=== PATIENT | male | born 1950 | race Caucasian/White ===

== ENCOUNTER 2017-12-04 11:39 | Emergency (ER) | payer MEDICARE, OTHER ==
[2017-12-04] MEDS ORDERED: Sodium Chloride 0.9% 10 ML Syringe FLUSH PRN (13:38)
[2017-12-04] MEDS ORDERED: Iopamidol 755 Mg/ML 100 ML Bottle IVPUSH ONE (13:45)
[2017-12-04] MEDS ORDERED: Sodium Chloride 0.9% 1,000 ML IV ONE (14:12)
[2017-12-04 14:19] LABS: ANION GAP 11.6; CHLORIDE,CL 108 mmol/L (101-111); SODIUM,NA 137 mmol/L (135-145)
--- NOTE | 2017-12-04 14:23 | EDM.PDOC ---
ED HPI GENERAL MEDICAL PROBLEM - General Chief Complaint: Abdominal Pain Stated Complaint: [id number] HERNIA Time Seen by Provider: 12/04/17 13:30 Source of Information: Reports: Patient, Family, RN, RN Notes Reviewed History Limitations: Reports: No Limitations - History of Present Illness INITIAL COMMENTS - FREE TEXT/NARRATIVE: Pt to ER with c/o hernia. Patient states the hernia has been present for years but lately he feels his stomach is more distended and he is frequently nauseated. He states he feels the hernia move and "slide". He states his belly has progressively getting more distended and harder over the past 3 months. Patient states he has constipation at times, takes laxatives, and then has diarrhea. He states his stools are paste yellow in color. Denies blood in the stool. Denies any pain at this time. Patient states he has noticed that his skin has gotten quite pale. Patient also admits to decreased appetite in the past 3 months. Patient denies drinking alcohol, drug use, and states that he quit smoking 10 years ago. Patient states he has no known health problems and takes no meds. He states he does not go to the doctor. Onset: Gradual - Related Data Allergies Allergy/AdvReac Type Severity Reaction Status Date / Time No Known Allergies Allergy Verified 12/04/17 13:07 Home Meds: Home Meds . [No Known Home Meds] 12/04/17 [History] Past Medical History - Past Health History Medical/Surgical History: Denies Medical/Surgical History Gastrointestinal History: Reports: Other (See Below) Other Gastrointestinal History: umbilical area hernia Social & Family History - Tobacco Use Smoking Status *Q: Never Smoker Second Hand Smoke Exposure: No - Caffeine Use Caffeine Use: Reports: Coffee - Recreational Drug Use Recreational Drug Use: No ED ROS GENERAL - Review of Systems Review Of Systems: ROS reveals no pertinent complaints other than HPI. ED EXAM, GI/ABD - Physical Exam Exam: See Below Exam Limited By: No Limitations General Appearance: Alert, WD/WN, Mild Distress Eyes: Bilateral: Normal Appearance, EOMI Ears: Normal External Exam, Hearing Grossly Normal Nose: Normal Inspection Throat/Mouth: Normal Inspection, Normal Voice, No Airway Compromise Head: Atraumatic, Normocephalic Neck: Normal Inspection, Supple, Non-Tender, Full Range of Motion Respiratory/Chest: No Respiratory Distress, Lungs Clear, Normal Breath Sounds, No Accessory Muscle Use, Chest Non-Tender Cardiovascular: Normal Peripheral Pulses, Regular Rate, Rhythm, No Gallop, No JVD, Tachycardia, Other (pedal edema +1-2) GI/Abdominal Exam: Distended, Rigid, Tender, Abnormal Bowel Sounds, Hernia (Male) Exam: Deferred Rectal (Males) Exam: Deferred Back Exam: Normal Inspection, Full Range of Motion Extremities: Normal Inspection, Normal Range of Motion, Non-Tender, Normal Capillary Refill, Pedal Edema (+1-2) Neurological: Alert, Oriented, CN II-XII Intact, Normal Cognition, Normal Gait, Normal Reflexes, No Motor/Sensory Deficits Psychiatric: Anxious Skin Exam: Warm, Dry, Pallor Lymphatic: No Adenopathy Course - Vital Signs Last Recorded V/S: Last Vital Signs Temp 98.1 F 12/04/17 12:55 Pulse 126 H 12/04/17 12:55 Resp 18 12/04/17 12:55 BP 150/62 H 12/04/17 12:55 Pulse Ox 98 12/04/17 12:55 - Orders/Labs/Meds Orders: Active Orders 24 hr Category Date Time Status Peripheral IV Care [RC] . DIRECTED Care 12/04/17 13:39 Active DRUG SCREEN URINE BIORAD [URCHEM] Stat Lab 12/04/17 13:38 Ordered RED BLOOD CELLS LP [BBK] Stat Lab 12/04/17 13:47 Received TYPE AND SCREEN [BBK] Stat Lab 12/04/17 13:47 Received UA W/MICROSCOPIC [URIN] Stat Lab 12/04/17 13:38 Ordered Sodium Chloride 0.9% [Saline Flush] Med 12/04/17 13:38 Active 10 ml FLUSH ASDIRECTED PRN Peripheral IV Insertion Adult [OM.PC] Stat Oth 12/04/17 13:38 Ordered Transfuse RBC [Transfuse Red Blood Cells] [COMM] Stat Oth 12/04/17 14:01 Ordered Medication Orders Sodium Chloride (Saline Flush) 10 ml FLUSH ASDIRECTED PRN PRN Reason: Keep Vein Open Last Admin: 12/04/17 14:15 Dose: 10 ml Labs: Laboratory Tests 12/04/17 12/04/17 12/04/17 Range/Units 13:47 13:47 13:47 WBC 3.6 L (5.0-10.0) 10^3/uL RBC 2.77 L (4.6-6.2) 10^6/uL Hgb 4.6 L* (14.0-18.0) g/dL Hct 18.6 L* (40.0-54.0) % MCV 67.1 L (80-100) fL MCH 16.6 L (27.0-34.0) pg MCHC 24.7 L (33.0-35.0) g/dL Plt Count 106 L (150-450) 10^3/uL Neut % (Auto) 69.2 (42.2-75.2) % Lymph % (Auto) 19.4 L (20.5-50.1) % Whitley % (Auto) 8.3 H (2-8) % Eos % (Auto) 1.7 (1.0-3.0) % Baso % (Auto) 1.4 H (0.0-1.0) % PT 14.1 H (9.0-12.0) SEC INR 1.4 H (0.9-1.2) Sodium 137 (135-145) mmol/L Potassium 3.6 (3.6-5.0) mmol/L Chloride 108 (101-111) mmol/L Carbon Dioxide 21.0 (21.0-31.0) mmol/L Anion Gap 11.6 BUN 11 (7-18) mg/dL Creatinine 0.6 (0.6-1.3) mg/dL Est Cr Clr Drug Dosing 117.17 mL/min Estimated GFR (MDRD) > 60 BUN/Creatinine Ratio 18.33 Glucose 117 H (74-105) mg/dL Calcium 8.5 (8.4-10.2) mg/dl Total Bilirubin 2.0 H (0.2-1.0) mg/dL AST 32 (10-42) IU/L ALT 15 (10-60) IU/L Alkaline Phosphatase 56 (42-121) IU/L Total Protein 5.8 L (6.7-8.2) g/dl Albumin 3.1 L (3.2-5.5) g/dl Globulin 2.7 Albumin/Globulin Ratio 1.15 Amylase 32 (28-100) U/L Lipase 24 (22-51) U/L Ethyl Alcohol < 5 mg/dL Meds: Medications Generic Name Dose Route Start Last Admin Trade Name Denise PRN Reason Stop Dose Admin Sodium Chloride 10 ml 12/04/17 13:38 12/04/17 14:15 Saline Flush FLUSH 10 ml ASDIRECTED PRN Administration Keep Vein Open Discontinued Medications Generic Name Dose Route Start Last Admin Trade Name Denise PRN Reason Stop Dose Admin Sodium Chloride 1,000 mls @ 999 mls/hr 12/04/17 14:12 12/04/17 14:36 Normal Saline IV 12/04/17 15:12 999 mls/hr .BOLUS ONE Administration Iopamidol 100 ml 12/04/17 13:45 Isovue-370 (76%) IVPUSH 12/04/17 13:46 ONETIME ONE Iopamidol 100 ml 12/04/17 14:41 12/04/17 14:19 Isovue-300 (61%) IVPUSH 12/04/17 14:42 100 ml ONETIME ONE Administration - Radiology Interpretation Free Text/Narrative:: Chest/Abdomen/Pelvis CT: 1. Massive ascites filling the peritoneum and distending the abdomen. 2. Small cirrhotic appearing liver (irregular nodular surface) and splenomegaly. 3. Cholelithiasis without abnormal dilatation of the intra or extrahepatic biliary ducts. Normal pancreas. Kidneys unremarkable. 4. Infraumbilical ventral wall defect (hernia filled with ascitic fluid and tiny "knuckle" of small bowel) without current signs of mechanical bowel obstruction. 5. Normal cardiac silhouette without cephalization of vascular flow or alveolar edema. No pericardial effusion however small dependent (sympathetic?) pleural effusion, on the right. No lung mass, hilar lymphadenopathy or focal lobar pneumonia. 6. Disc disease and hypertrophic spondylosis but no pathologic skeletal lesion, fracture or dislocation of the spine. 7. Calcifications normal caliber thoracic and abdominal aorta. No aneurysm or dissection. Conclusion: Signs of severe liver failure. No obvious malignancy. Large umbilical hernia. See rad report Departure - Departure Time of Disposition: 15:23 Disposition: DC/Tfer to Acute Hospital 02 Condition: Poor, Serious, Critical Clinical Impression: Anemia Qualifiers: Anemia type: unspecified type Qualified Code(s): D64.9 - Anemia, unspecified Umbilical hernia Qualifiers: Obstruction and gangrene presence: without obstruction or gangrene Qualified Code(s): K42.9 - Umbilical hernia without obstruction or gangrene Liver failure Qualifiers: Liver failure chronicity: acute Hepatic coma status: without hepatic coma Qualified Code(s): K72.00 - Acute and subacute hepatic failure without coma - Discharge Information *PRESCRIPTION DRUG MONITORING PROGRAM REVIEWED*: No *COPY OF PRESCRIPTION DRUG MONITORING REPORT IN PATIENT WILLIS: No Forms: ED Department Discharge, Interfacility Transfer EMTALA - My Orders Last 24 Hours: My Active Orders 12/04/17 13:38 DRUG SCREEN URINE BIORAD [URCHEM] Stat UA W/MICROSCOPIC [URIN] Stat Sodium Chloride 0.9% [Saline Flush] 10 ml FLUSH ASDIRECTED PRN Peripheral IV Insertion Adult [OM.PC] Stat 12/04/17 13:39 Peripheral IV Care [RC] . DIRECTED 12/04/17 13:47 RED BLOOD CELLS LP [BBK] Stat TYPE AND SCREEN [BBK] Stat 12/04/17 14:01 Transfuse RBC [Transfuse Red Blood Cells] [COMM] Stat - Assessment/Plan Last 24 Hours: My Active Orders 12/04/17 13:38 DRUG SCREEN URINE BIORAD [URCHEM] Stat UA W/MICROSCOPIC [URIN] Stat Sodium Chloride 0.9% [Saline Flush] 10 ml FLUSH ASDIRECTED PRN Peripheral IV Insertion Adult [OM.PC] Stat 12/04/17 13:39 Peripheral IV Care [RC] . DIRECTED 12/04/17 13:47 RED BLOOD CELLS LP [BBK] Stat TYPE AND SCREEN [BBK] Stat 12/04/17 14:01 Transfuse RBC [Transfuse Red Blood Cells] [COMM] Stat
[2017-12-04] MEDS ORDERED: Iopamidol 612 MG/ML 100 ML Bottle IVPUSH ONE (14:41)
--- NOTE | 2017-12-04 14:52 | CT ---
Clinical history: 67-year-old enteric male with umbilical "hernia" and distended abdomen. Scan technique: Volume acquisition of data emergency CT scan chest abdomen and pelvis obtained after oral ingestion 1 bottle Redicat barium and during/after intravenous administration 100 cc nonionic Is ovue contrast (3 cc/s via injector) while patient was lying supine on the Siemens multi slice CT scan ner [place], [place]. All data archived in the PAC system for storage, reformatting axial/sagittal/coronal planes and study. Interpretation: Markedly abnormal. 1. Massive ascites filling the peritoneum and distending the abdomen. 2. Small cirrhotic appearing liver (irregular nodular surface) and splenomegaly. 3. Cholelithiasis without abnormal dilatation of the intra or extrahepatic biliary ducts. Normal panc reas. Kidneys unremarkable. 4. Infraumbilical ventral wall defect (hernia filled with ascitic fluid and tiny "knuckle" of small b owel) without current signs of mechanical bowel obstruction. 5. Normal cardiac silhouette without cephalization of vascular flow or alveolar edema. No pericardial effusion however small dependent (sympathetic?) pleural effusion, on the right. No lung mass, hilar lymphadenopathy or focal lobar pneumonia. 6. Disc disease and hypertrophic spondylosis but no pathologic skeletal lesion, fracture or dislocati on of the spine. 7. Calcifications normal caliber thoracic and abdominal aorta. No aneurysm or dissection. CONCLUSION: Signs of severe liver failure (see above). No obvious malignancy. Large umbilical hernia.
== END 2017-12-04 16:00 ==
LOC: EDBD 11:39 → DL.ED 11:39
DX: K72.00 Acute and subacute hepatic failure without coma (principal); K42.9 Umbilical hernia without obstruction or gangrene; D64.9 Anemia, unspecified
CPT/HCPCS: 36415; 36430; 71260; 74177; 80053; 80305; 81001; 82150; 83690; 85025; 85610; 86850; 86900; 86901; 86920; 86922; 96360; 99285; G0480; J7030; J7050; P9016; Q9967

== ENCOUNTER 2018-08-11 08:26 | Emergency (ER) | payer MEDICARE, OTHER ==
--- NOTE | 2018-08-11 08:56 | EDM.PDOC ---
ED HPI GENERAL MEDICAL PROBLEM - General Chief Complaint: General Stated Complaint: WOUND LEAKING FROM SURGERY PM FRIDAY Time Seen by Provider: 08/11/18 08:37 Source of Information: Reports: Patient, RN, RN Notes Reviewed, Other (MILLY Hanna , [facility]) History Limitations: Reports: No Limitations - History of Present Illness INITIAL COMMENTS - FREE TEXT/NARRATIVE: Pt to ER with c/o leakage from paracentesis site. Patient states he had a paracentesis on Friday at [facility] in [place]. Patient states the site has been profusely leaking since then. He states he has changed the dressing several times and his clothes are always wet. Denies fever or chills. Onset: Gradual - Related Data Allergies Allergy/AdvReac Type Severity Reaction Status Date / Time No Known Allergies Allergy Verified 08/11/18 08:36 Home Meds: Home Meds . [No Known Home Meds] 12/04/17 [History] Past Medical History - Past Health History Medical/Surgical History: Denies Medical/Surgical History HEENT History: Reports: None, Other (See Below) Other HEENT History: esphageal varices Cardiovascular History: Reports: None Respiratory History: Reports: None Gastrointestinal History: Reports: Other (See Below) Other Gastrointestinal History: umbilical area hernia Genitourinary History: Reports: None Musculoskeletal History: Reports: None Neurological History: Reports: None Psychiatric History: Reports: None Endocrine/Metabolic History: Reports: None Hematologic History: Reports: None Immunologic History: Reports: None Oncologic (Cancer) History: Reports: None Dermatologic History: Reports: None - Infectious Disease History Infectious Disease History: Reports: None - Past Surgical History Head Surgeries/Procedures: Reports: None Social & Family History - Family History Family Medical History: Noncontributory - Tobacco Use Smoking Status *Q: Former Smoker Used Tobacco, but Quit: Yes Month/Year Tobacco Last Used: ? - Caffeine Use Caffeine Use: Reports: Coffee - Recreational Drug Use Recreational Drug Use: No ED ROS GENERAL - Review of Systems Review Of Systems: ROS reveals no pertinent complaints other than HPI. ED EXAM, GENERAL - Physical Exam Exam: See Below Exam Limited By: No Limitations General Appearance: Alert, WD/WN, No Apparent Distress Eye Exam: Bilateral Eye: EOMI, Normal Inspection Ears: Normal External Exam, Hearing Grossly Normal Nose: Normal Inspection Throat/Mouth: Normal Inspection, Normal Voice, No Airway Compromise Head: Atraumatic, Normocephalic Neck: Normal Inspection, Supple, Non-Tender, Full Range of Motion Respiratory/Chest: No Respiratory Distress, Decreased Breath Sounds, Crackles ( bases bilaterally) Cardiovascular: Normal Peripheral Pulses, Regular Rate, Rhythm, No Edema, No Gallop, No JVD, No Murmur, No Rub Peripheral Pulses: 2+: Radial (L), Radial (R) GI/Abdominal: Normal Bowel Sounds, Non-Tender, Distended, Rigid, Hernia (large umbilical hernia), Other (paracentesis site on right side of abdomen leaking clear fluids) (Male) Exam: Deferred Rectal (Males) Exam: Deferred Back Exam: Normal Inspection, Full Range of Motion Extremities: Normal Inspection, Normal Range of Motion, Non-Tender, Normal Capillary Refill, No Pedal Edema Neurological: Alert, Oriented, CN II-XII Intact, Normal Cognition, Normal Gait, Normal Reflexes, No Motor/Sensory Deficits Psychiatric: Normal Affect, Normal Mood Skin Exam: Warm, Dry, Intact, Normal Color, No Rash Lymphatic: No Adenopathy ED GENERAL MEDICAL PROCEDURES - Laceration/Wound Repair Right Middle Abdomen Lac/wound length in cm: 0.5 Appearance: Subcutaneous Distal NVT: Neuro & Vascular Intact Local Anesthesia - Lidocaine (Xylocaine): 1% Plain Local Anesthetic Volume: 4cc Closed with: Sutures Suture Size: 4-0 # of Sutures: 1 Suture Type: Nylon, Other (Purse string suture ) Drain Placement: No Sterile Dressing Applied: Nurse Tetanus Status Addressed: No Complications: No Course - Vital Signs Last Recorded V/S: Last Vital Signs Temp 98.7 F 08/11/18 08:37 Pulse 112 H 08/11/18 08:37 Resp 18 08/11/18 08:37 BP 122/61 08/11/18 08:37 Pulse Ox 95 08/11/18 08:37 - Orders/Labs/Meds Meds: Medications Discontinued Medications Generic Name Dose Route Start Last Admin Trade Name Denise PRN Reason Stop Dose Admin Lidocaine HCl 30 ml 08/11/18 09:01 08/11/18 09:05 Xylocaine-Mpf 1% INJECT 08/11/18 09:02 30 ml ONETIME ONE Administration Departure - Departure Time of Disposition: 09:22 Disposition: Home, Self-Care 01 Condition: Fair Clinical Impression: Status post abdominal paracentesis - Discharge Information *PRESCRIPTION DRUG MONITORING PROGRAM REVIEWED*: No *COPY OF PRESCRIPTION DRUG MONITORING REPORT IN PATIENT WILLIS: No Referrals: Idalmis Reed MD [Primary Care Provider] - Forms: ED Department Discharge Additional Instructions: Keep area clean and dry Follow up with your primary care provider in 2-3 days to have the purse string suture removed Return to the ER with any further problems
[2018-08-11] MEDS ORDERED: Lidocaine 1% 30 ML SDV INJECT ONE (09:01)
== END 2018-08-11 09:27 | disposition home or self-care (01) ==
LOC: DL.ED 08:26
DX: K91.89 Other postprocedural complications and disorders of digestive system (principal); Z87.891 Personal history of nicotine dependence
CPT/HCPCS: 12001; 99283; J2001

== ENCOUNTER 2018-08-19 08:20 | Emergency (ER) | payer MEDICARE, OTHER ==
--- NOTE | 2018-08-19 09:00 | EDM.PDOC ---
<Aline Whitmore - Last Filed: 08/19/18 08:55> ED HPI GENERAL MEDICAL PROBLEM - General Chief Complaint: Wound Recheck Stated Complaint: SUTURE BROKE, LEAKING FLUID Time Seen by Provider: 08/19/18 08:20 Source of Information: Reports: Patient History Limitations: Reports: No Limitations - History of Present Illness INITIAL COMMENTS - FREE TEXT/NARRATIVE: Patient underwent a paracentesis to RUQ last week and sutures were removed x3 days ago. Patient states since then, he noticed that the site was "leaking", so much so to the point that the side of his shirt was saturated per his report. Patient reports that he does not experience this leaking while lying down, only with activity. Patient denies any N/V, fever, or chills. Patient has no pain to this area. Location: Reports: Abdomen (RUQ) Associated Symptoms: Reports: Other ("draining paracentesis site") - Related Data Allergies Allergy/AdvReac Type Severity Reaction Status Date / Time No Known Allergies Allergy Verified 08/19/18 08:28 Home Meds: Home Meds Pantoprazole Sodium 40 mg PO DAILY 08/19/18 [History] Past Medical History - Past Health History Medical/Surgical History: Denies Medical/Surgical History HEENT History: Reports: None, Other (See Below) Other HEENT History: esphageal varices Cardiovascular History: Reports: None Respiratory History: Reports: None Gastrointestinal History: Reports: Other (See Below) Other Gastrointestinal History: umbilical area hernia Genitourinary History: Reports: None Musculoskeletal History: Reports: None Neurological History: Reports: None Psychiatric History: Reports: None Endocrine/Metabolic History: Reports: None Hematologic History: Reports: None Immunologic History: Reports: None Oncologic (Cancer) History: Reports: None Dermatologic History: Reports: None - Infectious Disease History Infectious Disease History: Reports: None - Past Surgical History Head Surgeries/Procedures: Reports: None Social & Family History - Family History Family Medical History: Noncontributory - Caffeine Use Caffeine Use: Reports: Coffee ED ROS GENERAL - Review of Systems Review Of Systems: ROS reveals no pertinent complaints other than HPI. ED EXAM, SKIN/RASH Exam: See Below Exam Limited By: No Limitations General Appearance: Alert, WD/WN, No Apparent Distress Respiratory/Chest: No Respiratory Distress, Lungs Clear, Normal Breath Sounds, No Accessory Muscle Use, Chest Non-Tender Cardiovascular: Normal Peripheral Pulses, Regular Rate, Rhythm, No Edema, No Gallop, No JVD, No Murmur, No Rub GI/Abdominal: Normal Bowel Sounds, Soft, Non-Tender, No Abnormal Bruit, No Mass , Distended (paracentesis site to RUQ, no noted erythema or drainage) Neurological: Alert, Oriented, CN II-XII Intact, Normal Cognition, Normal Gait, Normal Reflexes, No Motor/Sensory Deficits Psychiatric: Normal Affect, Normal Mood Skin: Warm, Dry, Intact (paracentesis site to RUQ), Normal Color, No Rash Course - Re-Assessments/Exams Free Text/Narrative Re-Assessment/Exam: 4x4 gauze applied and secured to paracentesis site to try and capture drainage. Patient instructed to walk around room as per normal activity. 08/19/18 0835 After patient has been up ambulating within room, no drainage noted per paracentesis site dressing at this time. 08/19/18 0900 Departure - Departure Time of Disposition: 09:02 Disposition: Home, Self-Care 01 Clinical Impression: Delayed wound healing - Discharge Information *PRESCRIPTION DRUG MONITORING PROGRAM REVIEWED*: No Instructions: Wound Infection, [id number] Forms: ED Department Discharge Additional Instructions: Monitor this site for signs and symptoms that may indicate infection. Apply dressing as needed while activity in case of drainage. Follow up with primary care provider if drainage returns or infection is suspected. <Josue Pond - Last Filed: 08/19/18 09:09> Course - Re-Assessments/Exams Free Text/Narrative Re-Assessment/Exam: 08/19/18 09:09 I personally performed or re-performed the physical examination and medical decision making. I have verified all student documentation or findings, including history, physical exam and/or medical decision making.
== END 2018-08-19 09:15 | disposition home or self-care (01) ==
LOC: DL.ED 08:20
CPT/HCPCS: 99282